=== PATIENT | male | born 1975 | race Caucasian/White ===

== ENCOUNTER 2023-05-06 09:31 | Day surgery (SDC) | payer BC, SELFPAY ==
--- NOTE | 2023-05-06 | PATH_ITS ---
[facility] Accession Number: [id number] No. of containers..02 Tissue . 01 Material submitted: . PART A: colon - DESCENDING COLON POLYP PART B: rectum - RECTAL FOLD BIOPSIES . 01 Diagnosis: A. Descending Colon Polyp: Hyperplastic polyp. . B. Rectal Fold, Biopsies: Hyperplastic polyps. MRV 05/18/2023 1305 Local . 01 Electronically signed: . Jason Martin MD, PhD, Pathologist NPI- [id number] . 01 Gross description: . Part A: DESCENDING COLON POLYP: Received in formalin is 2 fragment(s) of allen, soft tissue measuring 0.6 x 0.3 x 0.2 cm to 0.1 x 0.1 x 0.1 cm submitted entirely in 1 cassette(s) Part B: RECTAL FOLD BIOPSIES: Received in formalin is 2 fragment(s) of allen, soft tissue measuring 00.3 x 0.3 x 0.3 cm to 03 x 0.2 x 0.2 cm submitted entirely in 1 cassette(s) /AAY 05/07/2023 0458 Local . 01 Pathologist provided ICD-10: K63.5, K62.1 . 01 CPT . 008511, 228447 Specimen Comment: A courtesy copy of this report has been sent to [phone] Performed at: 01 [facility] [address] [place] [address], [place], [place] [id number] MD Tawanda Palmer MD Phone: [phone]
[2023-05-06 09:56] VITALS: BP 126/96; PULSE 93; RESP 19; TEMP 36.1; O2SAT 98; BMI 31.5
--- NOTE | 2023-05-06 10:10 | PM.HP.1 ---
History of Present Illness History of Present Illness Date Patient Seen: 05/06/23 Time Patient Seen: 10:11 Chief complaint: Colonoscopy Narrative: Puneet is a 47 year old man here for a colonoscopy. He had one many years ago but does not remember the reason. No family history of colon cancer. Meds Home Medications and Allergies Home Medications Medication Instructions Recorded Confirmed Type sodium,potassium,mag sulfates 17.5 See Rx Instructions PO .COMPLEX 03/18/23 Rx gram-3.13 gram-1.6 gram oral soln #354 mL (Suprep Bowel Prep Kit) Allergies Allergy/AdvReac Type Severity Reaction Status Date / Time No Known Drug Allergies Allergy Unverified 01/22/23 08:32 Exam Const General: healthy appearing Assessment & Plan Assessment and plan (1) Colon cancer screening: Status: Acute Plan We reviewed the risks and benefits of colonoscopy for colon cancer screening and he would like to proceed.
--- NOTE | 2023-05-06 10:57 | PM.HP.1 ---
History of Present Illness History of Present Illness Chief complaint: Colonoscopy Narrative: Puneet is a 47 year old man here for a colonoscopy. He had one many years ago but does not remember the reason. No family history of colon cancer. Meds Home Medications and Allergies Home Medications Medication Instructions Recorded Confirmed Type No Known Home Medications 05/06/23 05/06/23 History Allergies Allergy/AdvReac Type Severity Reaction Status Date / Time No Known Drug Allergies Allergy Verified 05/06/23 10:20 Exam Vital Signs (past 8 hours): - 05/06/23 09:56 Temperature 97 F L Pulse Rate 93 H Respiratory Rate 19 Blood Pressure 126/96 H Pulse Oximetry 98 Oxygen Delivery Method Room Air Oxygen Delivery Method Room Air Assessment & Plan Assessment and plan (1) Colon cancer screening: Status: Acute Plan We reviewed the risks and benefits of colonoscopy for colon cancer screening and he would like to proceed.
--- NOTE | 2023-05-06 11:33 | P.OP.COLON_ITS ---
Operative Date/Time/Diagnoses Date of procedure: 05/06/23 Time of procedure: 11:33 Pre-op diagnosis: Colon cancer screening Post-op diagnosis: same Procedure & Clinicians Study performed: Colonoscopy Same procedure as scheduled: Yes Surgeon: Tomer Antoine Procedure Notes Procedure in detail: Surgeon: Tomer Antoine MD Anesthesia: Raven Christensen PULMONOLOGY PHYSICIAN Procedure: The patient was brought to the endoscopy suite, placed in left lateral decubitus position. The patient was connected to monitoring devices. A time-out was performed. Sedation was administered. Once the patient was adequately sedated, a digital rectal exam was performed and was normal. The scope was then inserted and advanced to the cecum where the appendiceal orifice was identified and photographed. The scope was then slowly withdrawn over greater than 6 minutes. The mucosa was thoroughly inspected. There was a 7 mm polyp in the descending colon removed with a cold snare. There was a prominent fold of mucosa in the upper rectum near the rectosigmoid junction which did not appeared to have any adenomatous mucosa. It is suspected that this was either an inflammatory polyp versus an inverted diverticulum. Cold forceps biopsies were taken to rule out adenomatous tissue. The scope was retroflexed in the rectum. No other abnormalities were seen. The scope was straightened and removed. The patient was awakened and brought to recovery. Scope withdrawal time: 14 minutes Sedation time: 24 minutes EBL: 5 mL Findings: 7 mm polyp in the descending colon and prominent mucosal fold near the rectosigmoid junction Post-procedure Disposition: PACU
[2023-05-06 11:35] VITALS: BP 92/63; PULSE 57; RESP 18; TEMP 36.3; O2SAT 96
[2023-05-06 11:39] VITALS: BP 99/70; PULSE 59; RESP 14; O2SAT 98
[2023-05-06 11:45] VITALS: BP 111/84; BP 114/82; PULSE 52; PULSE 64; RESP 16; RESP 18; TEMP 36.6; TEMP 36.7; O2SAT 98
== END 2023-05-06 12:07 | disposition home or self-care (01) ==
PROVIDERS: PCP Registered Nurse; Referring Provider Surgery; Visit Provider Surgery
PROC: 0DJD8ZZ Inspection of Lower Intestinal Tract, Via Natural or Artificial Opening Endoscopic (ICD-10-PCS; CPT 45378; principal; 2023-05-06 10:45)
DX: Z12.11 Encounter for screening for malignant neoplasm of colon (principal); K63.5 Polyp of colon; K62.1 Rectal polyp
CPT/HCPCS: 45380

== ENCOUNTER → 2025-02-21 11:15 | Outpatient (CLI) | payer BC, SELFPAY ==
--- NOTE | 2025-02-21 11:16 | DI.RAD.S_ITS ---
PROCEDURE: XR FOOT LT MIN 3V INDICATIONS: pain x 1 week especially medial, no known injury TECHNIQUE: 3 views of the foot were acquired. COMPARISON: None. FINDINGS: Bones: No fractures or dislocations. No suspicious bony lesions. Incidental note is made of an accessory ossicle, an os trigonum. A plantar calcaneal spur is seen. Soft tissues: No tibiotalar joint effusion. Achilles tendon appears normal. IMPRESSION: No significant plain film abnormality is seen. Dictated by: Piotr Farley M.D. on 02/21/2025 at 10:40 Approved by: Piotr Farley M.D. on 02/21/2025 at 10:42
== END ==
PROVIDERS: PCP Registered Nurse; Referring Provider Physician Assistant; Visit Provider Physician Assistant
DX: M79.672 Pain in left foot (principal)
CPT/HCPCS: 73630